=== PATIENT | male | born 1970 | race Caucasian/White ===

== ENCOUNTER 2018-02-21 11:00 | Inpatient (IN) | payer OTHER ==
[~2018-02-21] VITALS: Ht 167.6 cm; Wt 90.7 kg
[2018-02-21] MEDS ORDERED: ATACAND16 MG PO (13:55)
== END 2018-03-05 09:29 | disposition home or self-care (01) | DRG 375 ==
LOC: EDSTATUS 11:00 → ADM 11:00 → O/R 02-28 08:02 → SURG 02-28 08:02 → SURH 02-28 11:00 → EDBD 02-28 11:00 → SURH 02-28 13:30 → SURG 02-28 14:52
PROVIDERS: Colon & Rectal Surgery
PROC: 0DJD8ZZ Inspection of Lower Intestinal Tract, Via Natural or Artificial Opening Endoscopic (ICD-10-PCS; 2018-02-28)
PROC: 4A033R1 Measurement of Arterial Saturation, Peripheral, Percutaneous Approach (ICD-10-PCS; 2018-02-28)
PROC: 3E0336Z Introduction of Nutritional Substance into Peripheral Vein, Percutaneous Approach (ICD-10-PCS; 2018-02-28)
PROC: 0DBP8ZZ Excision of Rectum, Via Natural or Artificial Opening Endoscopic (ICD-10-PCS; principal; 2018-02-28 13:30)
PROC: 02HV33Z Insertion of Infusion Device into Superior Vena Cava, Percutaneous Approach (ICD-10-PCS; 2018-03-01)
DX: C20 Malignant neoplasm of rectum (principal); K91.840 Postprocedural hemorrhage of a digestive system organ or structure following a digestive system procedure; J44.9 Chronic obstructive pulmonary disease, unspecified

== ENCOUNTER 2018-06-29 09:01 | Outpatient (CLI) | payer OTHER ==
[~2018-06-29 09:01] MED LIST: ATACAND16 MG PO
== END 2018-06-29 09:22 | disposition home or self-care (01) ==
LOC: NUCLEAR 09:01
DX: C20 Malignant neoplasm of rectum (principal)
CPT/HCPCS: 78815; A9552

== ENCOUNTER 2018-12-31 13:14 | Outpatient (CLI) | payer OTHER ==
[~2018-12-31] VITALS: Ht 170.2 cm; Wt 117.9 kg
== END 2018-12-31 13:30 | disposition home or self-care (01) ==
LOC: OFIC 805 13:14
DX: H91.90 Unspecified hearing loss, unspecified ear (principal); H74.8X3 Other specified disorders of middle ear and mastoid, bilateral; H61.23 Impacted cerumen, bilateral

== ENCOUNTER 2019-10-11 07:20 | Day surgery (SDC) | payer OTHER | END 2019-10-11 11:50 | disposition home or self-care (01) | LOC: AMB-ENDOS 07:20 → ADM 12:45 → AMB-ENDOS 12:45 | DX: D12.2 Benign neoplasm of ascending colon (principal); K64.1 Second degree hemorrhoids; K57.30 Diverticulosis of large intestine without perforation or abscess without bleeding ==